=== PATIENT | male | born 1980 | race Caucasian/White ===

== ENCOUNTER 2018-10-20 18:41 | Emergency (ER) | payer OTHER ==
[~2018-10-20] VITALS: Ht 172.7 cm; Wt 75.2 kg
[~2018-10-20 18:41] MED LIST: ACYC800T5 PO; DOXY100T21 PO; TRIA15CR55 TOP
[2018-10-20 18:43] VITALS: Ht 172.7 cm; Wt 75.2 kg
--- NOTE | 2018-10-20 19:24 | ERD ---
ER Documentation Chief Complaint Chief Complaint RIGHT CALF RASH, ITCHING AND BURNING X3DAYS HPI 38-year-old male presents with a rash on his right calf for last 3 days. It is burning and itching. Denies any exposures, fevers, vomiting, shortness of the chest pain or additional symptoms. ROS All systems reviewed and are negative except as per history of present illness. Medications Home Meds Active Scripts Triamcinolone Acetonide (Triamcinolone Acetonide) 0.1% - 15 Gm Cream.gm., 1 APPLIC TOP BID for 7 Days, #1 TUB 30g Prov:LARRY THURSTON MD 10/20/18 Acyclovir* (Zovirax*) 800 Mg Tablet, 800 MG PO 5 TIMES DAILY for 7 Days, TAB Prov:LARRY THURSTON MD 10/20/18 Doxycycline Monohydrate* (Doxycycline Monohydrate*) 100 Mg Tablet, 100 MG PO BID for 10 Days, TAB Prov:LARRY THURSTON MD 10/20/18 PMhx/Soc Medical and Surgical Hx: pt denies Medical Hx, pt denies Surgical Hx Hx Alcohol Use: Yes Hx Substance Use: No Hx Tobacco Use: No Smoking Status: Never smoker FmHx Family History: No diabetes, No coronary disease, No other Physical Exam Vitals Vital Signs Date Temp Pulse Resp B/P (MAP) Pulse Ox O2 O2 Flow FiO2 Time Delivery Rate 10/20/18 98.0 66 18 119/60 96 18:43 (79) Physical Exam Const: No acute distress Head: Atraumatic Eyes: Normal Conjunctiva ENT: Normal External Ears, Nose and Mouth. Neck: Full range of motion. No meningismus. Resp: Clear to auscultation bilaterally Cardio: Regular rate and rhythm, no murmurs Abd: Soft, non tender, non distended. Normal bowel sounds Skin: No petechiae or purpura. Erythematous vesicular rash with pustules on the right medial calf. The area is approximately 8 x 10 cm. No induration or streaking or fluctuance. Back: No midline or flank tenderness Ext: No cyanosis, or edema Neur: Awake and alert Psych: Normal Mood and Affect Procedures/MDM Patient presents with a painful rash on the right medial calf. Clinically the history is insistent with herpes zoster although there are some white pustules suggesting possibly folliculitis as well. We will treat empirically with acyclovir, doxycycline, triamcinolone, primary care follow-up and return precautions for this no signs of purpura, lethargy rashes, DVT, significant cellulitis or necrotizing fasciitis. He will be discharged home with return precautions, for worsening redness, fevers, new worsening symptoms otherwise take acyclovir, doxycycline as prescribed. The patient was stable with no new complaints during the ER course. Clinically, there is no current evidence to suggest meningitis, sepsis, acute abdomen, pneumonia, stroke, acute coronary syndrome, pulmonary embolism, aortic dissection or any other emergent condition appearing to require further evaluation or hospitalization. Patient counseled regarding my diagnostic impression and care plan. Prior to discharge all questions answered. Pt agrees with treatment plan and understands strict return precautions. Pt is instructed to follow up with primary care provider within 24- 48 hours. Precautionary instructions provided including instructions to return to the ER if not improving or for any worsening or changing symptoms or concerns. Disclaimer: Inadvertent spelling and grammatical errors are likely due to EHR/dictation software use and do not reflect on the overall quality of patient care. Also, please note that the electronic time recorded on this note does not necessarily reflect the actual time of the patient encounter. Departure Diagnosis: Primary Impression: Rash Condition: Stable Patient Instructions: Shingles (Herpes Zoster), Folliculitis Additional Instructions: We will treat for folliculitis as well as possible shingles. Recheck for worsening redness, fevers, new or worsening symptoms. LARRY THURSTON MD Oct 20, 2018 19:24
[2018-10-20 20:35] VITALS: BP 109/69; PULSE 64; RESP 18
== END 2018-10-20 20:36 | disposition home or self-care (01) ==
LOC: FTE 18:41
DX: R21 Rash and other nonspecific skin eruption (principal)
CPT/HCPCS: 99283